=== PATIENT | male | born 1950 | race Caucasian/White ===

== ENCOUNTER 2016-09-19 16:51 | Inpatient (IN) | payer SELFPAY ==
[2016-09-19] VITALS (7 sets, daily range): BP systolic 90–140; BP diastolic 56–90; PULSE 66–113; RESP 15–18; TEMP 97.9–98.3; O2SAT 92–100
[~2016-09-19] VITALS: Ht 180.3 cm; Wt 75.4 kg
--- NOTE | 2016-09-19 17:26 | PD ---
Physical Exam Time Seen by Provider: 17:25 Narrative 66 y/o male with lightheadedness, rapid HR for one day. Vital signs reviewed. Seen at triage desk. Awaiting bed placement. Data Data Last Documented VS Vital Signs Date Time Temp Pulse Resp B/P Pulse Ox O2 Delivery O2 Flow Rate FiO2 09/19/16 16:54 97.9 113 15 137/85 99 MDM Medical Record Reviewed: Yes Supervised Visit with MARIMAR: Kulwinder Beasley Sep 19, 2016 17:25
[2016-09-19] MEDS ORDERED: MULTTAB22 PO (17:29)
[2016-09-19 19:13] LABS: AUTOMATED NEUTROPHIL # 11.4 TH/MM3 (1.8-7.7); BASOPHIL # 0.1 TH/MM3 (0-0.2); BASOPHIL % 0.9 % (0.0-2.0); EOSINOPHIL # 0.5 TH/MM3 (0-0.4); EOSINOPHIL % 3.3 % (0.0-4.0); HEMATOCRIT 44.3 % (39.0-51.0); HEMO FLAGS DIFF FINAL; LYMPH % 17.8 % (9.0-44.0); LYMPHOCYTE # 2.9 TH/MM3 (1.0-4.8); MEAN CELL VOLUME 95.4 FL (80.0-100.0); MEAN CORPUSCULAR HEMOGLOBIN 32.8 PG (27.0-34.0); MEAN CORPUSCULAR HGB CONC 34.4 % (32.0-36.0); MONO % 8.9 % (0.0-8.0); NEUT % 69.1 % (16.0-70.0); PLATELET COUNT 309 TH/MM3 (150-450); RED BLOOD COUNT 4.64 MIL/MM3 (4.50-5.90); RED CELL DISTRIBUTION WIDTH 12.8 % (11.6-17.2); WHITE BLOOD COUNT 16.5 TH/MM3 (4.0-11.0)
[2016-09-19 19:26] LABS: APTT (PATIENT) 31.6 SEC (24.3-30.1); PROTHROMBIN TIME - PATIENT 10.7 SEC (9.8-11.6)
[2016-09-19 19:29] LABS: ANION GAP 7 MEQ/L (5-15); AST (GOT) 14 U/L (15-37); BICARBONATE 24.8 MEQ/L (21.0-32.0); BLOOD UREA NITROGEN 15 MG/DL (7-18); CHLORIDE 104 MEQ/L (98-107); GLOMERULAR FILTRATION RATE 99 ML/MIN (>89); MAGNESIUM 2.2 MG/DL (1.5-2.5); POTASSIUM 4.1 MEQ/L (3.5-5.1); SODIUM (NA) 136 MEQ/L (136-145)
[2016-09-19 19:31] LABS: ALT (GPT) 22 U/L (12-78)
[2016-09-19 19:34] LABS: ALKALINE PHOSPHATASE 71 U/L (45-117); TOTAL BILIRUBIN ADULT 0.4 MG/DL (0.2-1.0)
[2016-09-19 19:37] LABS: CREATINE KINASE 88 U/L (39-308)
[2016-09-19] MEDS ORDERED: ASPI81CH CHEW (20:41)
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
[2016-09-19] MEDS ORDERED: SODIUM CHLORIDE 0.9% FLUSH 5 ML FLUSH IV FLUSH PRN (21:00)
[2016-09-19] MEDS ORDERED: DILTIAZEM HCL 25 MG/5 ML VIAL IV ONE (21:00)
--- NOTE | 2016-09-19 21:22 | RADRPT ---
EXAM DATE/TIME: 09/19/2016 20:49 [facility] COMPARISON: No previous studies available for comparison. INDICATIONS : Palpitations. Dizziness that started today. MEDICAL HISTORY : None. SURGICAL HISTORY : None. ENCOUNTER: Initial ACUITY: 1 day PAIN SCORE: 0/10 LOCATION: Bilateral chest FINDINGS: A single view of the chest demonstrates the lungs to be symmetrically aerated without evidence of mas s, infiltrate or effusion. The cardiomediastinal contours are unremarkable. Osseous structures are intact. CONCLUSION: Normal examination. Felix Batres MD on September 19, 2016 at 21:20 Board Certified Radiologist. This report was verified electronically.
[2016-09-19] MEDS ORDERED: NALOXONE HCL 0.4 MG/ML AMP IV PRN (22:30)
[2016-09-19] MEDS ORDERED: SODIUM CHLORIDE 0.9% FLUSH 10 ML FLUSH IV FLUSH PRN (22:30)
[2016-09-19 22:31] LABS: BLOOD, URINE TRACE (NEG); GLUCOSE,URINE NEG (NEG); KETONE, URINE TRACE mg/dL (NEG); NITRITE,URINE NEG (NEG); PH, URINE 5.5 (5.0-8.5); URINE COLOR YELLOW (YELLW/STRAW)
[2016-09-19 22:32] LABS: COMMENT (UR) CATH-CULT NOT IND; CULTURE IF INDICATED CATH CULTURE NOT IND
[2016-09-19] MEDS: DILTIAZEM INJ 125 MG in SODIUM CHLORIDE 0.9% INJ 100 ML IV SCH (22:44)
[2016-09-20] VITALS (8 sets, daily range): BP systolic 90–112; BP diastolic 61–70; PULSE 59–116; RESP 16–18; TEMP 98.2–98.7; O2SAT 93–97
[2016-09-20 00:51] LABS: CREATINE KINASE 68 U/L (39-308)
--- NOTE | 2016-09-20 04:13 | HHI.HP ---
HPI Service [facility] Primary Care Physician No Primary Care Physician Admission Diagnosis new-onset A. fib with RVR Diagnoses: (1) New onset a-fib Chief Complaint: Lightheadedness Travel History International Travel<30 Days: No Contact w/Intl Traveler <30 Da: No Traveled to Known Affected Are: No History of Present Illness Written by Estrellita Rojas, acting as scribe for Dr. Kaplan on 09/20/16 at 04:03. Lightheaded for 3 hours yesterday. He was initially seen at urgent care and referred to ED. Had some palpitations and diaphoresis along with the lightheadedness. He denies accompanying chest pain or shortness of breath. Denies fevers, nausea, vomiting, diarrhea, black or red stool, cough, or syncope. 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 Review of Systems Except as stated in HPI: all other systems reviewed are Neg Past Family Social History Past Medical History Arthritis History of Vitamin D deficiency Denies history of CAD, atrial fibrillation, CHF, hypertension, diabetes, liver or kidney problems, blood clots, CVA, cancer, or seizures. . Past Surgical History Tonsillectomy . Reported Medications Vitamin C Vitamin E Vitamin B PRN Advil Aspirin 81 mg daily . Allergies: Coded Allergies: No Known Allergies (Unverified , 09/19/16) Active Ordered Medications Current Medications IV Flush 2 ml 2 ml UNSCH PRN IV FLUSH FLUSH AFTER USING IV ACCESS; Start at 21:00; Stop 09/19/16 at 22:40; Status DC Diltiazem HCl/ Sodium Chloride (Cardizem Inj/NS Inj) 125 ml @ 0 mls/hr TITRATE IV Last administered on 09/19/16 22:44; Start 09/19/16 at 21:00 Diltiazem HCl (Cardizem Inj) 20 mg ONCE ONCE IV Last administered on 09/19/16 21:33; Start 09/19/16 at 21:00; Stop 09/19/16 at 21:01; Status DC Sodium Chloride (NS Flush) 2 ml UNSCH PRN IV FLUSH FLUSH AFTER USING IV ACCESS ; Start 09/19/16 at 22:30 Sodium Chloride (NS Flush) 2 ml BID IV FLUSH ; Start 09/20/16 at 09:00 Naloxone HCl (Narcan Inj) 0.4 mg UNSCH PRN IV SEE LABEL COMMENTS; Start at 22:30 . Family History Mother lived to 92 Father with dementia in 80's Social History Tobacco: smoked 1/2 PPD for 40 years Alcohol: 2-3 cans of beer daily Illicit Drugs: denies Caffeine: 3 - 5 cups of coffee per day Works on a fishing boat . Physical Exam Vital Signs Vital Signs Date Time Temp Pulse Resp B/P Pulse Ox O2 Delivery O2 Flow Rate FiO2 09/20/16 00:00 116 09/20/16 00:00 Room Air 09/19/16 23:30 98.3 78 18 115/73 98 09/19/16 23:25 86 16 101/73 96 09/19/16 22:00 104 16 109/57 92 Room Air 09/19/16 21:34 66 16 90/56 96 Room Air 09/19/16 21:30 66 16 90/56 97 Room Air 09/19/16 20:40 111 16 140/90 100 Room Air 09/19/16 16:54 97.9 113 15 137/85 99 Physical Exam GENERAL: This is an older male patient, in no apparent distress. SKIN: No rashes, ecchymoses or lesions. Cool and dry. HEAD: Atraumatic. Normocephalic. EYES: No scleral icterus. No injection or drainage. ENT: Nose without bleeding, purulent drainage. NECK: Trachea midline. No JVD. CARDIOVASCULAR: irregularly irregular without murmurs, gallops, or rubs. RESPIRATORY: Clear to auscultation. Breath sounds equal bilaterally. No wheezes , rales, or rhonchi. GASTROINTESTINAL: Abdomen soft, non-tender, nondistended. No guarding. MUSCULOSKELETAL: Extremities without clubbing, cyanosis, or edema. No calf tenderness. NEUROLOGICAL: Awake and alert. Motor and sensory grossly within normal limits. Normal speech. . Laboratory Laboratory Tests Test 09/19/16 09/19/16 09/19/16 09/20/16 17:55 21:25 22:15 00:10 White Blood Count 16.5 Red Blood Count 4.64 Hemoglobin 15.2 Hematocrit 44.3 Mean Corpuscular Volume 95.4 Mean Corpuscular Hemoglobin 32.8 Mean Corpuscular Hemoglobin 34.4 Concent Red Cell Distribution Width 12.8 Platelet Count 309 Mean Platelet Volume 8.3 Neutrophils (%) (Auto) 69.1 Lymphocytes (%) (Auto) 17.8 Monocytes (%) (Auto) 8.9 Eosinophils (%) (Auto) 3.3 Basophils (%) (Auto) 0.9 Neutrophils # (Auto) 11.4 Lymphocytes # (Auto) 2.9 Monocytes # (Auto) 1.5 Eosinophils # (Auto) 0.5 Basophils # (Auto) 0.1 CBC Comment DIFF FINAL Differential Comment Prothrombin Time 10.7 Prothromb Time International 1.0 Ratio Activated Partial 31.6 Thromboplast Time Sodium Level 136 Potassium Level 4.1 Chloride Level 104 Carbon Dioxide Level 24.8 Anion Gap 7 Blood Urea Nitrogen 15 Creatinine 0.79 Estimat Glomerular Filtration 99 Rate Random Glucose 96 Calcium Level 8.7 Magnesium Level 2.2 Total Bilirubin 0.4 Aspartate Amino Transf 14 (AST/SGOT) Alanine Aminotransferase 22 (ALT/SGPT) Alkaline Phosphatase 71 Total Creatine Kinase 88 68 Troponin I 0.02 LESS THAN 0.02 Total Protein 7.1 Albumin 3.7 Thyroid Stimulating Hormone 2.710 3rd Gen Urine Color YELLOW Urine Turbidity CLEAR Urine pH 5.5 Urine Specific [place] 1.008 Urine Protein NEG Urine Glucose (UA) NEG Urine Ketones TRACE Urine Occult Blood TRACE Urine Nitrite NEG Urine Bilirubin NEG Urine Urobilinogen LESS THAN 2.0 Urine Leukocyte Esterase NEG Urine RBC 1 Urine WBC LESS THAN 1 Microscopic Urinalysis Comment CATH-CULT NOT IND Result Diagram: 09/19/16 1755 09/19/16 1755 Imaging Last Impressions Chest X-Ray 09/19/16 0000 Signed Impressions: Service Date/Time: Monday, September 19, 2016 20:49 - CONCLUSION: Normal examination. Felix Batres MD . Assessment and Plan Problem List: (1) New onset a-fib ICD Code: I48.91 Status: Acute Assessment and Plan New onset atrial fibrillation with RVR - discussed stroke risk with the patient and importance of anticoagulation - echocardiogram to evaluate cardiac structure and function - Serial EKGs and cardiac enzymes to r/o underlying ACS - continuous cardiac telemetry to monitor heart rate and rhythm - Cardizem drip for rate control - TSH normal - electrolytes balanced - initial cardiac enzymes negative - 12 lead EKG personally reviewed - initial EKG with 125 vent rate, q waves in 2 ,3, and aVF indicated possible old [place], rate 88 on second EKG, otherwise, no significant changes from initial - will consult cardiology - appreciate assistance Leukocytosis - dehydration vs stress response vs infection - WBC 16.5 on admission - likely secondary to dehydration - afebrile here, denies symptoms of infection - recheck CBC in a.m. and follow results DVT prophylaxis - Lovenox 40 mg subq q24h . This note was transcribed by moriah [Estrellita Rojas]. I, Dr. Tong Kaplan personally performed the history, physical exam, and medical decision making; and confirmed the accuracy of the information in the transcribed note. Authenticated by Dr. Tong Kaplan on 09/20/16 at 04:03. Discussed Condition With ER physician and patient . Physician Certification 2 Midnight Certification Type: Admission for Inpatient Services Order for Inpatient Services The services are ordered in accordance with Medicare regulations or non- Medicare payer requirements, as applicable. In the case of services not specified as inpatient-only, they are appropriately provided as inpatient services in accordance with the 2-midnight benchmark. Estimated LOS (days): 3 days is the estimated time the patient will need to remain in the hospital, assuming treatment plan goals are met and no additional complications. Post-Hospital Plan: Home Estrellita Rojas Sep 20, 2016 04:13 Tong Kaplan MD Sep 20, 2016 08:33
[2016-09-20] MEDS: ENOXAPARIN SODIUM 40 MG/0.4 ML SYRINGE SQ SCH (05:22)
[2016-09-20 08:28] LABS: AUTOMATED NEUTROPHIL # 6.5 TH/MM3 (1.8-7.7); BASOPHIL # 0.1 TH/MM3 (0-0.2); BASOPHIL % 1.2 % (0.0-2.0); EOSINOPHIL # 0.4 TH/MM3 (0-0.4); EOSINOPHIL % 3.8 % (0.0-4.0); HEMATOCRIT 43.2 % (39.0-51.0); HEMO FLAGS DIFF FINAL; LYMPH % 26.5 % (9.0-44.0); LYMPHOCYTE # 2.9 TH/MM3 (1.0-4.8); MEAN CELL VOLUME 94.3 FL (80.0-100.0); MEAN CORPUSCULAR HEMOGLOBIN 33.5 PG (27.0-34.0); MEAN CORPUSCULAR HGB CONC 35.6 % (32.0-36.0); MONO % 9.1 % (0.0-8.0); NEUT % 59.4 % (16.0-70.0); PLATELET COUNT 289 TH/MM3 (150-450); RED BLOOD COUNT 4.58 MIL/MM3 (4.50-5.90); WHITE BLOOD COUNT 10.9 TH/MM3 (4.0-11.0)
--- NOTE | 2016-09-20 08:28 | EKG ---
Date Performed: 09/19/2016 Time Performed: 17:50:52 PTAGE: 66 years EKG: ATRIAL FIBRILLATION WITH RAPID VENTRICULAR RESPONSE POSSIBLE INFERIOR MYOCARDIAL INFARCTION ABNORMAL RHYTHM ECG NO PREVIOUS TRACING DOCTOR: Erik Bella Interpretating Date/Time 09/20/2016 08:26:22
--- NOTE | 2016-09-20 08:48 | PD.CONS ---
HPI Service CV Consult Requested By Reason for Consult a-fib Primary Care Physician No Primary Care Physician History of Present Illness Here with c/o of 3 hours of lightheadedness yesterday. He also complain of tachycardia. He tried to go to work but did not feel well enough to stay. He eventually went to Urgent Care and was told to go to the ER. He denies any chest pain or shortness of breath. Cardiac risk factors include age and smoking. No history of cardiac disease in his first degree relatives (Adolfo Fraga) Review of Systems Consitutional: DENIES: Fatigue, Fever, Chills, Weight gain, Weight loss Eyes: DENIES: Amaurosis [place], Change in vision HEENT: COMPLAINS OF: Lightheadedness Respiratory: DENIES: See HPI, Cough, Snoring, Shortness of breath, Wheezing, Sputum production Cardiovascular: COMPLAINS OF: Tachycardia Gastrointestinal: DENIES: Nausea, Vomiting, Change in bowel habits, Reflux, Bloody stools, Melena Genitourinary: DENIES: Urinary incontinence, Difficulty voiding Integumentary: DENIES: Rash Neurologic: DENIES: Tingling or numbness, Memory problems, Poor Balance, Stroke symptoms Musculoskeletal: DENIES: Joint pain, Muscle pain, Limited range of motion, Back pain Psychiatric: DENIES: Anxiety, Depression, Sleep disturbances Hematologic: DENIES: Bruising tendencies, Bleeding tendencies Endocrine: DENIES: Weight gain, Weight loss, Thyroid disease (Adolfo Fraga ) Past Family Social History Allergies: Coded Allergies: No Known Allergies (Unverified , 09/19/16) Past Medical History arthritis h/o Vitamin D deficiency Past Surgical History tonsillectomy Reported Medications Reported Meds & Active Scripts Active Reported Aspirin 81 Mg Chew 81 Mg CHEW DAILY Multi For Him (Multiple Vitamins W/ Minerals) 1 Tab Tab 1 Tab PO DAILY Active Ordered Medications Current Medications Medications (Trade) Dose Ordered Sig/Lew Route Start Time Stop Time Status Last Admin (Cardizem Inj/NS Inj) 125 ml @ 0 mls/hr TITRATE IV 09/19/16 21:00 09/19/16 22:44 (NS Flush) 2 ml UNSCH PRN IV FLUSH 09/19/16 22:30 (NS Flush) 2 ml BID IV FLUSH 09/20/16 09:00 (Narcan Inj) 0.4 mg UNSCH PRN IV 09/19/16 22:30 (Lovenox Inj) 40 mg Q24H SQ 09/20/16 06:00 09/20/16 05:22 Family History noncontributory Social History smokeds 1/2 PPD X 40 years drinks beer daily denies substance abuse (Adolfo Fraga) Physical Exam Vital Signs Vital Signs Date Time Temp Pulse Resp B/P Pulse Ox O2 Delivery O2 Flow Rate FiO2 09/20/16 04:00 98.3 69 18 110/68 96 09/20/16 04:00 Room Air 09/20/16 00:00 116 09/20/16 00:00 Room Air 09/19/16 23:30 98.3 78 18 115/73 98 09/19/16 23:25 86 16 101/73 96 09/19/16 22:00 104 16 109/57 92 Room Air 09/19/16 21:34 66 16 90/56 96 Room Air 09/19/16 21:30 66 16 90/56 97 Room Air 09/19/16 20:40 111 16 140/90 100 Room Air 09/19/16 16:54 97.9 113 15 137/85 99 Physical Exam GENERAL: Well-nourished, well-developed patient in no apparent distress. NECK: No JVD. No carotid bruit. CARDIOVASCULAR: IR IR. S1/S2 no murmur, rub, or gallop. RESPIRATORY: No accessory muscle use. Clear to auscultation. Breath sounds equal bilaterally. GASTROINTESTINAL: Abdomen soft, non-tender, nondistended. MUSCULOSKELETAL: Extremities without clubbing, cyanosis, or edema. Laboratory Laboratory Tests Test 09/19/16 09/19/16 09/19/16 09/20/16 17:55 21:25 22:15 00:10 White Blood Count 16.5 Red Blood Count 4.64 Hemoglobin 15.2 Hematocrit 44.3 Mean Corpuscular Volume 95.4 Mean Corpuscular Hemoglobin 32.8 Mean Corpuscular Hemoglobin 34.4 Concent Red Cell Distribution Width 12.8 Platelet Count 309 Mean Platelet Volume 8.3 Neutrophils (%) (Auto) 69.1 Lymphocytes (%) (Auto) 17.8 Monocytes (%) (Auto) 8.9 Eosinophils (%) (Auto) 3.3 Basophils (%) (Auto) 0.9 Neutrophils # (Auto) 11.4 Lymphocytes # (Auto) 2.9 Monocytes # (Auto) 1.5 Eosinophils # (Auto) 0.5 Basophils # (Auto) 0.1 CBC Comment DIFF FINAL Differential Comment Prothrombin Time 10.7 Prothromb Time International 1.0 Ratio Activated Partial 31.6 Thromboplast Time Sodium Level 136 Potassium Level 4.1 Chloride Level 104 Carbon Dioxide Level 24.8 Anion Gap 7 Blood Urea Nitrogen 15 Creatinine 0.79 Estimat Glomerular Filtration 99 Rate Random Glucose 96 Calcium Level 8.7 Magnesium Level 2.2 Total Bilirubin 0.4 Aspartate Amino Transf 14 (AST/SGOT) Alanine Aminotransferase 22 (ALT/SGPT) Alkaline Phosphatase 71 Total Creatine Kinase 88 68 Troponin I 0.02 LESS THAN 0.02 Total Protein 7.1 Albumin 3.7 Thyroid Stimulating Hormone 2.710 3rd Gen Urine Color YELLOW Urine Turbidity CLEAR Urine pH 5.5 Urine Specific [place] 1.008 Urine Protein NEG Urine Glucose (UA) NEG Urine Ketones TRACE Urine Occult Blood TRACE Urine Nitrite NEG Urine Bilirubin NEG Urine Urobilinogen LESS THAN 2.0 Urine Leukocyte Esterase NEG Urine RBC 1 Urine WBC LESS THAN 1 Microscopic Urinalysis Comment CATH-CULT NOT IND Test 09/20/16 07:45 White Blood Count 10.9 Red Blood Count 4.58 Hemoglobin 15.4 Hematocrit 43.2 Mean Corpuscular Volume 94.3 Mean Corpuscular Hemoglobin 33.5 Mean Corpuscular Hemoglobin 35.6 Concent Red Cell Distribution Width 13.0 Platelet Count 289 Mean Platelet Volume 9.0 Neutrophils (%) (Auto) 59.4 Lymphocytes (%) (Auto) 26.5 Monocytes (%) (Auto) 9.1 Eosinophils (%) (Auto) 3.8 Basophils (%) (Auto) 1.2 Neutrophils # (Auto) 6.5 Lymphocytes # (Auto) 2.9 Monocytes # (Auto) 1.0 Eosinophils # (Auto) 0.4 Basophils # (Auto) 0.1 CBC Comment DIFF FINAL Differential Comment (Adolfo Fraga) Result Diagram: 09/20/16 3948 09/19/16 9523 Assessment and Plan Problem List: (1) New onset a-fib Assessment and Plan A-fib RVR - not rate controlled, will add diltiazem 60 mg QID and try to wean diltiazem gtt.His CHADS-VASC is 0. Since he is a new start would plan to anticoagulate for 30 days and plan DCC Get 2D echo,TSH and SPECT and go from there (Adolfo Fraga) Assessment and Plan add PO cardizem wean cardizem gtt lexiscan. if negative, start eliquis 5 mg BID x 30 days. if still in afib at that time, then DCC. if lexican abnormal, then possible LHC. await 2d echo rate control if echo and camacho unremarkable, then DC planning (Luis Reddy MD) Adoflo Fraga Sep 20, 2016 08:48 Luis Reddy MD Sep 20, 2016 09:03
[2016-09-20 08:49] LABS: ANION GAP 8 MEQ/L (5-15); BICARBONATE 24.4 MEQ/L (21.0-32.0); BLOOD UREA NITROGEN 11 MG/DL (7-18); CHLORIDE 107 MEQ/L (98-107); GLOMERULAR FILTRATION RATE 122 ML/MIN (>89); SODIUM (NA) 139 MEQ/L (136-145)
[2016-09-20 09:06] LABS: CREATINE KINASE 61 U/L (39-308)
[2016-09-20] MEDS: DILTIAZEM HCL 60 MG TAB PO SCH ×4 (09:43→20:33)
[2016-09-20] MEDS: SODIUM CHLORIDE 0.9% FLUSH 10 ML FLUSH IV FLUSH SCH ×2 (09:43→20:35)
[2016-09-20] MEDS ORDERED: REGADENOSON INJ 0.4 MG/5 ML SYR ONE (13:16)
--- NOTE | 2016-09-20 16:06 | RADRPT ---
EXAM DATE/TIME: 09/20/2016 12:25 [place] COMPARISON: No previous studies available for comparison. INDICATIONS : Lightheaded. Atrial fibrillation. DOSE: 26.3 mCi Tc99m Myoview at stress. 8.6 mCi Tc99m Myoview at rest. 0.4 mg Lexiscan STRESS SYMPTOMS: Nausea and lightheadedness. EJECTION FRACTION: 68% MEDICAL HISTORY : None SURGICAL HISTORY : Tonsillectomy. ENCOUNTER: Initial ACUITY: 2 days PAIN SCALE: 0/10 LOCATION: chest TECHNIQUE: The patient underwent pharmacologic stress with infusion of prescribed dose. Continuous ECG tracing was monitored during stress. Gated SPECT imaging was performed after stress and conventional SPECT i maging was performed at rest. The examination was performed on a SPECT/CT scanner, both attenuation and non-corrected datasets were reviewed. FINDINGS: DISTRIBUTION: The maximum perfused segment at stress is in the posterobasal wall. PERFUSION STUDY: There is a moderate sized area of moderately diminished relative perfusion involving the inferior wal l which does show at least mild redistribution. Perfusion is elsewhere reasonably well-preserved. GATED STUDY: There is intact wall motion and thickening without hypokinetic or dyskinetic segments. CONCLUSION: Moderate size moderate severity inferior perfusion abnormality with some degree of redistribution. RISK CATEGORY: Intermediate (1-3% Annual Mortality Rate) Hector Cosme MD on September 20, 2016 at 15:47 Board Certified Radiologist. This report was verified electronically.
--- NOTE | 2016-09-20 18:01 | ECHRPT ---
Indication: Paroxysmal atrial fibrillation CONCLUSIONS Normal left ventricular size. Wall thickness is normal. The left ventricular systolic function is low normal with an estimated ejection fraction of 55%. The left atrial size is mildly dilated. Fdrf-eq-gqbkjend mitral valve regurgitation. Trace aortic valve regurgitation. There is mild tricuspid valve regurgitation. The estimated pulmonary arterial pressure is 34 mmHg. BP: / HR: Rhythm: Atrial fibrillation Technical Quality:Fair FINDINGS LEFT VENTRICLE Normal left ventricular size. Wall thickness is normal. The left ventricular systolic function is low normal with an estimated ejection fraction of 55%. RIGHT VENTRICLE Normal right ventricular size and systolic function. LEFT ATRIUM The left atrial size is mildly dilated. RIGHT ATRIUM The right atrial size is normal. ATRIAL SEPTUM Normal atrial septal thickness without atrial level shunting by limited color doppler interrogation. AORTA The aortic root and proximal ascending aorta are normal in size on limited imaging. MITRAL VALVE Pixi-xr-wibwsdoo mitral valve regurgitation. AORTIC VALVE Trace aortic valve regurgitation. TRICUSPID VALVE There is mild tricuspid valve regurgitation. The estimated pulmonary arterial pressure is 34 mmHg. PULMONARY VALVE The pulmonary valve is not well visualized. VESSELS The inferior vena cava is normal in size. PERICARDIUM No pericardial effusion. Tez Lopez MD, FACC (Electronically Signed) Final Date:20 September 2016 18:00
[2016-09-20] MEDS: DILTIAZEM INJ 125 MG in SODIUM CHLORIDE 0.9% INJ 100 ML IV SCH (21:35)
[2016-09-21] VITALS: BP 108/59; PULSE 61; RESP 16; TEMP 97.9; O2SAT 95
[2016-09-21 04:00] VITALS: BP 111/58; PULSE 76; RESP 18; TEMP 98.4; O2SAT 96
[2016-09-21] MEDS: ENOXAPARIN SODIUM 40 MG/0.4 ML SYRINGE SQ SCH (04:49)
[2016-09-21 08:00] VITALS: BP 115/67; PULSE 62; RESP 18; TEMP 98; O2SAT 94
[2016-09-21] MEDS: DILTIAZEM HCL 60 MG TAB PO SCH (08:08)
[2016-09-21] MEDS: SODIUM CHLORIDE 0.9% FLUSH 10 ML FLUSH IV FLUSH SCH (08:09)
--- NOTE | 2016-09-21 08:13 | EKG ---
Date Performed: 09/20/2016 Time Performed: 07:12:14 PTAGE: 66 years EKG: Sinus tachycardia with PAC(s) with borderline 1st degree A-V block Possible inferior infarc t - age undetermined Abnormal ECG PREVIOUS TRACING : 09/20/2016 00.11 DOCTOR: Erik Bella Interpretating Date/Time 09/21/2016 08:06:43
--- NOTE | 2016-09-21 08:13 | EKG ---
Date Performed: 09/20/2016 Time Performed: 00:11:38 PTAGE: 66 years EKG: Atrial fibrillation Possible inferior infarct - age undetermined Abnormal ECG PREVIOUS TRACING : 09/19/2016 17.50 DOCTOR: Erik Bella Interpretating Date/Time 09/21/2016 08:06:49
--- NOTE | 2016-09-21 08:37 | PD.CARD.PN ---
Subjective Subjective Remarks denies CV complaints (Adolfo Fraga) Objective Vital Signs / I&O Vital Signs Date Time Temp Pulse Resp B/P Pulse Ox O2 Delivery O2 Flow Rate FiO2 09/21/16 08:00 98.0 62 18 115/67 94 09/21/16 04:00 98.4 76 18 111/58 96 09/21/16 00:00 Room Air 09/21/16 00:00 Room Air 09/21/16 00:00 97.9 61 16 108/59 95 09/20/16 22:27 59 09/20/16 20:35 Room Air 09/20/16 20:00 98.7 69 16 112/61 95 09/20/16 19:45 65 09/20/16 16:00 98.6 75 18 107/63 97 09/20/16 09:37 88 09/20/16 09:37 Room Air I/O 09/20/16 09/20/16 09/20/16 09/21/16 09/21/16 09/21/16 07:00 15:00 23:00 07:00 15:00 23:00 Intake Total 240 ml 360 ml 480 ml 263 ml Balance 240 ml 360 ml 480 ml 263 ml Intake Oral 240 ml 360 ml 480 ml 240 ml IV Total 23 ml # Voids 1 2 2 2 # Bowel Movements 0 1 1 0 Physical Exam GENERAL: Well-nourished, well-developed patient in no apparent distress. NECK: No JVD. No carotid bruit. CARDIOVASCULAR: RRR. S1/S2 no murmur, rub, or gallop. RESPIRATORY: No accessory muscle use. Clear to auscultation. Breath sounds equal bilaterally. GASTROINTESTINAL: Abdomen soft, non-tender, nondistended. MUSCULOSKELETAL: Extremities without clubbing, cyanosis, or edema. (Adolfo Fraga) Assessment and Plan Problem List: (1) New onset a-fib Assessment and Plan A-fib RVR - rate controlled, will add diltiazem 60 mg QID. His CHADS-VASC is 0. Since he is a new start would plan to anticoagulate for 30 days and plan [facility] SPECT is abnormal, we will schedule coronary angiogram and go from there mild to moderate MR - repeat echo in one year (Adolfo Fraga) Assessment and Plan Patient wishes to defer cath for now and is asymptomatic. Will write Rx forcardizemCD 240 mg daily. F/U in office 1 week (Shakeel Bingham MD) Adolfo Fraga Sep 21, 2016 08:37 Shakeel Bingham MD Sep 21, 2016 08:41
[2016-09-21] MEDS ORDERED: DILTIAZEM-CD 240 MG CAP ER PO SCH (09:00)
[2016-09-21] MEDS ORDERED: CARD240C6 PO (10:34)
--- NOTE | 2016-09-21 11:06 | HHI.DCPOC ---
Discharge Care Plan Diagnosis: (1) New onset a-fib (2) CAD (coronary artery disease) Goals to Promote Your Health * To prevent worsening of your condition and complications * To maintain your health at the optimal level Directions to Meet Your Goals Take your medications as prescribed Follow your dietary instruction Follow activity as directed Keep your appointments as scheduled Take your immunizations and boosters as scheduled If your symptoms worsen call your PCP, if no PCP go to Urgent Care Center or Emergency Room Smoking is Dangerous to Your Health. Avoid second hand smoke Call the 24-hour hour crisis hotline for domestic abuse at Shana Franklin MD Sep 21, 2016 11:06
--- NOTE | 2016-09-21 11:10 | HHI.PR ---
Subjective Remarks Patient reports is feeling great. No heart palpitations, chest pain, or shortness of breath. Anxious to go home. He deferred heart catheterization and will follow-up outpatient with cardiology. Objective Vitals Vital Signs Date Time Temp Pulse Resp B/P Pulse Ox O2 Delivery O2 Flow Rate FiO2 09/21/16 10:00 97 Room Air 09/21/16 08:00 98.0 62 18 115/67 94 09/21/16 04:00 98.4 76 18 111/58 96 09/21/16 00:00 Room Air 09/21/16 00:00 Room Air 09/21/16 00:00 97.9 61 16 108/59 95 09/20/16 22:27 59 09/20/16 20:35 Room Air 09/20/16 20:00 98.7 69 16 112/61 95 09/20/16 19:45 65 09/20/16 16:00 98.6 75 18 107/63 97 I/O 09/20/16 09/20/16 09/20/16 09/21/16 09/21/16 09/21/16 07:00 15:00 23:00 07:00 15:00 23:00 Intake Total 240 ml 360 ml 480 ml 263 ml Balance 240 ml 360 ml 480 ml 263 ml Intake Oral 240 ml 360 ml 480 ml 240 ml IV Total 23 ml # Voids 1 2 2 2 # Bowel Movements 0 1 1 0 Result Diagram: 09/20/16 0745 09/20/16 0745 Imaging Last Impressions Myocardial Perfusion Scan Nuc Med 09/20/16 0000 Signed Impressions: Service Date/Time: Tuesday, September 20, 2016 12:25 - CONCLUSION: Moderate size moderate severity inferior perfusion abnormality with some degree of redistribution. RISK CATEGORY: Intermediate (1-3%% Annual Mortality Rate ) Hector Cosme MD Chest X-Ray 09/19/16 0000 Signed Impressions: Service Date/Time: Monday, September 19, 2016 20:49 - CONCLUSION: Normal examination. Felix Batres MD Objective Remarks GENERAL: This is a well-nourished, well-developed patient, in no apparent distress. CARDIOVASCULAR: Normal rate and regular rhythm without murmurs, gallops, or rubs. RESPIRATORY: Good respiratory efforts. Breath sounds equal and clear to auscultation bilaterally. GASTROINTESTINAL: Abdomen soft, non-tender, non-distended. Normal active bowel sounds MUSCULOSKELETAL: Extremities without cyanosis, or edema. NEURO: Alert & Oriented x4 to person, place, time, situation. Moves all ext x4 PSYCH: Appropriate mood and affect. A/P Problem List: (1) New onset a-fib ICD Code: I48.91 Status: Acute (2) CAD (coronary artery disease) ICD Code: I25.10 Status: Acute Assessment and Plan 66-year-old male admitted with new onset atrial fibrillation. The patient was followed by cardiology. He was started on Cardizem. He converted back to sinus rhythm with rate controlled. CHADS-VASC is 0. 2-D echocardiogram was unremarkable. A nuclear stress test showed some mild abnormalities. However the patient remained symptom-free and elected to defer heart catheterization to follow-up outpatient. He is discharged on Cardizem and aspirin. Discharge home in good condition Activity: Regular as tolerated Diet: Heart healthy Meds: Per med rec Follow-up: With cardiology Shana Franklin MD Sep 21, 2016 11:10
== END 2016-09-21 11:31 | disposition home or self-care (01) | DRG 310 ==
LOC: NEPE 16:51 → NEDA 22:30 → N04A 23:27
PROVIDERS: ADMIT Family Medicine; ATTEND Family Medicine
DX: I48.91 Unspecified atrial fibrillation (principal); E86.0 Dehydration; F17.210 Nicotine dependence, cigarettes, uncomplicated; M19.90 Unspecified osteoarthritis, unspecified site; I25.10 Atherosclerotic heart disease of native coronary artery without angina pectoris
CPT/HCPCS: 71010; 78452; 80048; 80053; 81001; 82550; 83735; 84443; 84484; 85025; 85610; 85730; 93005; 93017; 93306; 96374; A9502; J1650; J2785